=== PATIENT | female | born 1940 | race American Indian/Alaskan Native ===

== ENCOUNTER 2018-11-01 12:04 | Emergency (ER) | payer MEDICARE ==
[2018-11-01] MEDS ORDERED: NACL 0.9% 1000 ML 1,000 ML IV ONE (13:15)
[2018-11-01] MEDS ORDERED: ZOFRAN IV ONE (13:15)
[2018-11-01] MEDS ORDERED: MORPHINE IV ONE (13:15)
--- NOTE | 2018-11-01 13:28 | Emergency Department Report ---
ED General Adult HPI - General Chief complaint: Abdominal Pain Stated complaint: AMS Time Seen by Provider: 11/01/18 12:55 Source: EMS Mode of arrival: Stretcher Limitations: No Limitations - History of Present Illness Initial comments: Patient presents to the emergency department with a chief complaint of nausea vomiting and abdominal pain. Patient states the symptoms started yesterday. Patient denies any diarrhea. Also denies chest pain, shortness breath, or headache. -: Sudden Severity scale (0 -10): 0 Consistency: constant Improves with: none Worsens with: none Associated Symptoms: denies other symptoms Treatments Prior to Arrival: none - Related Data Previous Rx's Medication Instructions Recorded Last Taken Type ALBUTEROL Inhaler (OR & NICU) 2 puff IH Q4HR PRN #1 inhalation 11/01/18 Unknown Rx [ProAir HFA Inhaler] Ondansetron [Zofran Odt] 4 mg PO Q4HR PRN #20 tab.rapdis 11/01/18 Unknown Rx Promethazine [Phenergan TAB] 25 mg PO Q6HR PRN #20 tab 11/01/18 Unknown Rx levoFLOXacin [Levaquin] 750 mg PO QDAY #5 tablet 11/01/18 Unknown Rx Allergies Allergy/AdvReac Type Severity Reaction Status Date / Time No Known Allergies Allergy Unverified 07/17/13 09:21 ED Review of Systems ROS: Stated complaint: AMS Other details as noted in HPI Comment: All other systems reviewed and negative Constitutional: denies: chills, fever Eyes: denies: eye pain, eye discharge, vision change ENT: denies: ear pain, throat pain Respiratory: denies: cough, shortness of breath, wheezing Cardiovascular: denies: chest pain, palpitations Endocrine: no symptoms reported Gastrointestinal: nausea, vomiting. denies: abdominal pain, diarrhea Genitourinary: denies: urgency, dysuria, discharge Musculoskeletal: denies: back pain, joint swelling, arthralgia Skin: denies: rash, lesions Neurological: denies: headache, weakness, paresthesias Psychiatric: denies: anxiety, depression Hematological/Lymphatic: denies: easy bleeding, easy bruising ED Past Medical Hx - Past Medical History Hx Hypertension: Yes Hx Diabetes: Yes Hx GERD: Yes Additional medical history: degenerative disc, hypothyroidism - Social History Smoking Status: Never Smoker Substance Use Type: None - Medications Home Medications: Home Medications Medication Instructions Recorded Confirmed Last Taken Type ALBUTEROL Inhaler (OR & NICU) 2 puff IH Q4HR PRN #1 inhalation 11/01/18 Unknown Rx [ProAir HFA Inhaler] Ondansetron [Zofran Odt] 4 mg PO Q4HR PRN #20 tab.rapdis 11/01/18 Unknown Rx Promethazine [Phenergan TAB] 25 mg PO Q6HR PRN #20 tab 11/01/18 Unknown Rx levoFLOXacin [Levaquin] 750 mg PO QDAY #5 tablet 11/01/18 Unknown Rx ED Physical Exam - General Limitations: No Limitations General appearance: alert, in no apparent distress - Head Head exam: Present: atraumatic, normocephalic - Eye Eye exam: Present: normal appearance, PERRL, EOMI - ENT ENT exam: Present: mucous membranes moist - Neck Neck exam: Present: normal inspection - Respiratory Respiratory exam: Present: normal lung sounds bilaterally. Absent: respiratory distress - Cardiovascular Cardiovascular Exam: Present: regular rate, normal rhythm. Absent: systolic murmur, diastolic murmur, rubs, gallop - GI/Abdominal GI/Abdominal exam: Present: soft, normal bowel sounds. Absent: distended, tenderness - Extremities Exam Extremities exam: Present: normal inspection - Back Exam Back exam: Present: normal inspection - Neurological Exam Neurological exam: Present: alert, oriented X3, CN II-XII intact. Absent: motor sensory deficit - Psychiatric Psychiatric exam: Present: normal affect, normal mood - Skin Skin exam: Present: warm, dry, intact, normal color. Absent: rash ED Course Vital Signs 11/01/18 11/01/18 11/01/18 12:21 12:31 12:45 Temperature 98.0 F Pulse Rate 65 57 L 68 Respiratory 15 17 Rate Blood Pressure 123/54 133/68 Blood Pressure 115/45 [Left] O2 Sat by Pulse 100 96 Oximetry 11/01/18 11/01/18 11/01/18 13:00 13:15 13:30 Temperature Pulse Rate 55 L 55 L 56 L Respiratory 19 15 10 L Rate Blood Pressure 126/54 122/57 130/59 Blood Pressure [Left] O2 Sat by Pulse 99 94 97 Oximetry 11/01/18 11/01/18 11/01/18 13:45 14:00 14:15 Temperature Pulse Rate 56 L 69 54 L Respiratory 16 14 14 Rate Blood Pressure 143/53 143/62 143/62 Blood Pressure [Left] O2 Sat by Pulse 95 91 92 Oximetry 11/01/18 11/01/18 11/01/18 14:30 14:45 15:00 Temperature Pulse Rate 52 L 56 L 69 Respiratory 11 L 13 14 Rate Blood Pressure 113/53 100/55 119/63 Blood Pressure [Left] O2 Sat by Pulse 91 92 90 Oximetry 11/01/18 11/01/18 11/01/18 15:22 15:31 15:45 Temperature Pulse Rate 57 L 56 L Respiratory 15 12 Rate Blood Pressure 119/63 88/25 97/35 Blood Pressure [Left] O2 Sat by Pulse 93 95 94 Oximetry 11/01/18 11/01/18 11/01/18 16:00 16:15 16:31 Temperature Pulse Rate 57 L 55 L 66 Respiratory 13 14 12 Rate Blood Pressure 98/32 80/35 93/45 Blood Pressure [Left] O2 Sat by Pulse 94 93 90 Oximetry 11/01/18 11/01/18 16:45 17:00 Temperature Pulse Rate 58 L 63 Respiratory 20 9 L Rate Blood Pressure 105/53 108/49 Blood Pressure [Left] O2 Sat by Pulse 95 Oximetry ED Medical Decision Making - Lab Data Result diagrams: 11/01/18 13:36 11/01/18 13:36 Lab Results 11/01/18 11/01/18 Range/Units 13:36 13:36 WBC 5.5 (4.5-11.0) K/mm3 RBC 4.36 (3.65-5.03) M/mm3 Hgb 12.2 (10.1-14.3) gm/dl Hct 37.2 (30.3-42.9) % MCV 85 (79-97) fl MCH 28 (28-32) pg MCHC 33 (30-34) % RDW 15.2 (13.2-15.2) % Plt Count 201 (140-440) K/mm3 Lymph % (Auto) 24.7 (13.4-35.0) % [place] % (Auto) 11.5 H (0.0-7.3) % Eos % (Auto) 4.3 (0.0-4.3) % Baso % (Auto) 1.1 (0.0-1.8) % Lymph # 1.4 (1.2-5.4) K/mm3 [place] # 0.6 (0.0-0.8) K/mm3 Eos # 0.2 (0.0-0.4) K/mm3 Baso # 0.1 (0.0-0.1) K/mm3 Seg Neutrophils % 58.4 (40.0-70.0) % Seg Neutrophils # 3.2 (1.8-7.7) K/mm3 Sodium 138 (137-145) mmol/L Potassium 3.3 L (3.6-5.0) mmol/L Chloride 99.1 (98-107) mmol/L Carbon Dioxide 25 (22-30) mmol/L Anion Gap 17 mmol/L BUN 16 (7-17) mg/dL Creatinine 1.6 H (0.7-1.2) mg/dL Estimated GFR 38 ml/min BUN/Creatinine Ratio 10 % Glucose 106 H (65-100) mg/dL Calcium 8.8 (8.4-10.2) mg/dL Total Bilirubin 0.50 (0.1-1.2) mg/dL AST 23 (5-40) units/L ALT 19 (7-56) units/L Alkaline Phosphatase 74 (35-129) units/L Total Protein 6.5 (6.3-8.2) g/dL Lipase 144 H (13-60) units/L - Radiology Data Radiology results: report reviewed - Medical Decision Making Patient states she feels better after medications Discuss results with patient Critical care attestation.: If time is entered above; I have spent that time in minutes in the direct care of this critically ill patient, excluding procedure time. ED Disposition Clinical Impression: Nausea & vomiting, Pneumonia Disposition: DC-01 TO HOME OR SELFCARE Is pt being admited?: No Does the pt Need Aspirin: No Condition: Stable Instructions: Acute Nausea and Vomiting (ED), Community-acquired Pneumonia (ED) Prescriptions: levoFLOXacin [Levaquin] 750 mg PO QDAY #5 tablet Promethazine [Phenergan TAB] 25 mg PO Q6HR PRN #20 tab PRN Reason: Nausea ALBUTEROL Inhaler (OR & NICU) [ProAir HFA Inhaler] 2 puff IH Q4HR PRN #1 inh alation PRN Reason: Shortness Of Breath Ondansetron [Zofran Odt] 4 mg PO Q4HR PRN #20 tab.rapdis PRN Reason: Nausea Referrals: PRIMARY CARE, [Referring] - 3-5 Days [facility] [Provider Group] - 3-5 Days [facility] [Provider Group] - 3-5 Days Time of Disposition: 17:39
[2018-11-01 14:18] LABS: Basophils # (Auto) 0.1 K/mm3 (0.0-0.1); Basophils % (Auto) 1.1 % (0.0-1.8); Eosinophils # (Auto) 0.2 K/mm3 (0.0-0.4); Eosinophils % (Auto) 4.3 % (0.0-4.3); Hematocrit 37.2 % (30.3-42.9); Hemoglobin 12.2 gm/dl (10.1-14.3); Lymphocytes # (Auto) 1.4 K/mm3 (1.2-5.4); Lymphocytes % (Auto) 24.7 % (13.4-35.0); Mean Corpuscular HGB Conc 33 % (30-34); Mean Corpuscular Volume 85 fl (79-97); Monocytes # (Auto) 0.6 K/mm3 (0.0-0.8); Monocytes % (Auto) 11.5 % (0.0-7.3); Platelet Count 201 K/mm3 (140-440); Red Blood Count 4.36 M/mm3 (3.65-5.03); Red Cell Distribution Width 15.2 % (13.2-15.2)
[2018-11-01 14:44] LABS: Calcium 8.8 mg/dL (8.4-10.2)
--- NOTE | 2018-11-01 15:34 | Cat Scan Report ---
CT ABDOMEN PELVIS WITHOUT CONTRAST: HISTORY: Abdominal pain with emesis. COMPARISON: none. TECHNIQUE: Helical CT in 1.25mm intervals without IV contrast. Sagittal and coronal reconstructions. FINDINGS: Lung bases: There is patchy infiltrate in the lingula which is partially imaged. Large hiatal hernia is also noted. Liver: Normal. Biliary system: Normal. Pancreas: Normal. Spleen: Normal. Kidneys/ureters/bladder: There are multiple bilateral large renal cysts one of the largest cysts measures 8 cm in the mid to superior left kidney. There is no evidence for nephrolithiasis or hydronephrosis. The ureters and bladder are unremarkable. Adrenal glands: Normal. Aorta: Mild diffuse calcifications. No aneurysm. Intestines: Mild ascending colon and sigmoid diverticulosis. No evidence for obstruction or focal inflammation. Appendix: Normal. Pelvic viscera: Hysterectomy changes are suspected. Ascites: None. Adenopathy: None. Musculoskeletal: Intact. Moderate lumbar spondylosis. IMPRESSION: Lingular infiltrate is suspected but is partially imaged. Large hiatal hernia. Bilateral renal cysts. Mild diverticulosis of the colon. No acute inflammatory process is identified in the abdomen or pelvis.
[2018-11-01] MEDS ORDERED: LEVAQUIN PO ONE (16:56)
[2018-11-01 17:51] LABS: Albumin 3.6 g/dL (3.9-5)
[2018-11-01 19:20] VITALS: BP 115/54
== END 2018-11-01 18:30 | disposition home or self-care (01) ==
LOC: ED 12:04
DX: J18.9 Pneumonia, unspecified organism (principal); R11.2 Nausea with vomiting, unspecified; I10 Essential (primary) hypertension; E11.9 Type 2 diabetes mellitus without complications; K21.9 Gastro-esophageal reflux disease without esophagitis; E03.9 Hypothyroidism, unspecified
CPT/HCPCS: 36415; 74176; 80053; 83690; 85025; 96361; 96374; 96375; 99284; J2270; J2405; J7030